=== PATIENT | male | born 2000 | race Caucasian/White ===

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

== ENCOUNTER 2025-01-17 21:04 | Emergency (ER) | payer MEDICAID ==
[~2025-01-17] VITALS: Ht 182.9 cm; Wt 102.7 kg
[2025-01-17 21:18] VITALS: BP 122/81; PULSE 105; RESP 16; TEMP 99; O2SAT 97
--- NOTE | 2025-01-17 21:27 | ED.PDOC ---
Back pain HPI HPI Comments PATIENT COMES WITH C.C OF RIGHT SECOND TOE PAIN / AFTER DROPPING A RAILROAD TIE ON IT. TOE HAS NO OPEN WOULD AND IS BRUISED WITH SWELLING. PATIENT DENIES NUMBNESS OR TINGLING SENSATION Chief Complaint: Lower Extremity Time Seen by MD: 21:19 Primary Care Provider: DR SLATER Reviewed Notes: Nurses Notes, Medications, Allergies Allergies: Coded Allergies: NO KNOWN ALLERGIES (Unverified , 02/24/11) Information Source: Patient Mode of Arrival: Ambulatory Past Medical History PAST MEDICAL HISTORY: Denies Surgical History: Denies all surgeries Family History Family History: Unobtainable Social History Smoker: Non-Smoker Alcohol: Denies ETOH Use Drugs: Denies Drug Use Lives In: Home Constitutional: denies: chills, diaphoresis, fatigue, fever, malaise, sweats, weakness, others EENTM: denies: blurred vision, double vision, ear bleeding, ear discharge, ear drainage, ear pain, ear ringing, eye pain, eye redness, hearing loss, mouth pain, mouth swelling, nasal discharge, nose bleeding, nose congestion, nose pain, photophobia, tearing, throat pain, throat swelling, voice changes, others Respiratory: denies: cough, hemoptysis, orthopnea, SOB at rest, shortness of breath, SOB with excertion, stridor, wheezing, others Cardiovascular: denies: chest pain, dizzy spells, diaphoresis, Dyspnea on exertion, edema, irregular heart beat, left arm pain, lightheadedness, palpitations, PND, syncope, others Gastrointestinal: denies: abdomen distended, abdominal pain, blood streaked bowels, constipated, diarrhea, dysphagia, difficulty swallowing, hematemesis, melena, nausea, poor appetite, poor fluid intake, rectal bleeding, rectal pain, vomiting, others Genitourinary: denies: burning, dysuria, flank pain, frequency, hematuria, incontinence, penile discharge, penile sore, pain, testicle pain, testicle swelling, urgency, others Neurological: denies: dizziness, fainting, headache, left sided numbness, left sided weakness, numbness, paresthesia, pre-existing deficit, right sided numbness, right sided weakness, seizure, speech problems, tingling, tremors, weakness, others Musculoskeletal: denies: back pain, gout, joint pain, joint swelling, muscle pain, muscle stiffness, neck pain, others Integumetry: reports: bruises (RIGHT 2ND DIGIT); denies: change in color, change in hair/nails, dryness, laceration, lesions, lumps, rash, wounds, others Allergic/Immunocompromised: denies: Difficulty Healing, Frequent Infections, Hives, Itching, others Hematologic/Lymphatic: denies: anemia, blood clots, easy bleeding, easy bruising, swollen glands, others Endocrine: denies: excessive hunger, excessive sweating, excessive thirst, excessive urination, flushing, intolerance to cold, intolerance to heat, unexplained weight gain, unexplained weight loss, others Psychiatric: denies: anxiety, bipolar disorder, depression, hopeless, panic disorder, schizophrenia, sleepless, suicidal, others Physical Exam General Appearance: No Apparent Distress, Normal HEENT: Pharynx Normal Neck: Full Range of Motion, Non-Tender Respiratory: Lungs Clear, No Respiratory Distress, Normal Breath Sounds Cardiovascular: No Murmur, Normal Peripheral Pulses, Regular Rate/Rhythm Breast Exam: Deferred Gastrointestinal: Non Tender, Soft Genitalia: Deferred Pelvic: Deferred Rectal: Deferred Extremities: No calf tenderness, Normal capillary refill, Normal inspection, Normal range of motion, Non-tender, No pedal edema Musculoskeletal : Apperance: Normal Neurologic: Alert, 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 Was a procedure done?: No Back Pain Differential Dx Differential Diagnosis: Fracture, Musculoskeletal Pain X-Ray, Labs, Meds, VS Vital Signs Date Time Temp Pulse Resp B/P (MAP) Pulse Ox O2 Delivery O2 Flow Rate FiO2 01/17/25 21:18 99.0 105 16 122/81 (95) 97 99.0 01/17/25 21:18 Room Air 01/17/25 21:18 99.0 105 16 122/81 (95) 97 99.0 X-Ray, Labs, Meds, VS Comment RIGHT FOOT X-RAY SHOWS NO ACUTE FRACTURES OSSEOUS LESIONS OR DISLOCATIONS. [id number] MOTRIN OR TYLENOL NEEDED FOR PAIN PER LABELED DOSING INSTRUCTIONS. TOE SAVITA-TAPED AND WRAPPED PATIENT TOLERATED WELL STRENGTH SENSORY MOTION INTACT. ADVISED TO FOLLOW UP WITH HIS PCP IN 1-2 DAYS NECESSARY DISCUSSED RICE. ER RETURN PRECAUTIONS GIVEN PATIENT INDICATES UNDERSTANDING AGREES WITH DISCHARGE PLAN OF CARE. Time of 1ST Reevaluation: 21:27 Reevaluation 1ST: Unchanged Time of 2ND Reevaluation: 22:16 Reevaluation 2ND: Improved Patient Education/Counseling: Diagnosis, Treatment, Prognosis, Need For Follow Up Family Education/Counseling: No Family Present Departure 1 Departure Time of Disposition: 22:17 Impression: Primary Impression: Contusion of toe with damage to nail Qualified Codes: S90.221A - Contusion of right lesser toe(s) with damage to nail, initial encounter Disposition: 01 HOME / SELF CARE / HOMELESS Condition: Stable Discharged With: Self Critical Care Note Critical Care Time?: No Stability Stability form required: GRISELDA Benjamin Jan 17, 2025 21:27
--- NOTE | 2025-01-17 21:57 | DVH ---
CLINICAL INDICATION: TOE PAIN TECHNIQUE: XY R FOOT 3 VIEW XRAY Comparison: None FINDINGS: No osseous or joint abnormality with no fracture or dislocation. Joint spaces are normal. IMPRESSION: No abnormality demonstrated.
== END 2025-01-17 22:30 | disposition home or self-care (01) ==
LOC: ER 21:07
DX: S90.221A Contusion of right lesser toe(s) with damage to nail, initial encounter (principal); X58.XXXA Exposure to other specified factors, initial encounter; Y93.89 Activity, other specified; Y92.89 Other specified places as the place of occurrence of the external cause; Y99.8 Other external cause status
CPT/HCPCS: 73630

== ENCOUNTER 2025-08-06 16:18 | Emergency (ER) | payer MEDICAID ==
[~2025-08-06] VITALS: Ht 185.4 cm; Wt 107.5 kg
[2025-08-06 16:20] VITALS: BP 145/98; PULSE 58; RESP 18; TEMP 97; O2SAT 98
== END 2025-08-06 18:46 | disposition left against medical advice (07) ==
LOC: ER 16:19
DX: K92.1 Melena (principal); K62.89 Other specified diseases of anus and rectum; Z53.21 Procedure and treatment not carried out due to patient leaving prior to being seen by health care provider

== ENCOUNTER 2025-09-26 12:38 | Emergency (ER) | payer MEDICAID ==
[~2025-09-26] VITALS: Ht 182.9 cm; Wt 108.3 kg
--- NOTE | 2025-09-26 13:42 | ED.PDOC ---
General HPI Comments 25 year old male presents to the ED with a chief compliant of bilateral testicle pain onset 2 days. He has been experiencing bilateral testicle pain for the past 2 days. Denies testicular masses Denies fevers chills night sweats nausea vomiting unintentional weight loss Denies changes in stool pattern Denies trauma to the testicle no recent fall Denies previous STD Denies urethral discharge, burning with urination, urinating more frequently, blood in the urine Chief Complaint: Testicle Pain Time Seen by MD: 13:30 Primary Care Provider: DR SLATER Reviewed notes: Nurses Notes, Medications, Allergies Allergies: Coded Allergies: NO KNOWN ALLERGIES (Unverified , 02/24/11) Information Source: Patient Mode of Arrival: Ambulatory Severity: Moderate Timing: Days Duration: Since onset Prehospital treatment: None Onset: Spontaneous Symptoms: Other History of: None Location male: R Scrotum, L Scrotum Modifying factors: None Past Medical History PAST MEDICAL HISTORY: Denies Surgical History: Denies all surgeries Family History Family History: Unobtainable Social History Smoker: Non-Smoker Alcohol: Denies ETOH Use Drugs: Denies Drug Use Lives In: Home All Other Systems: Reviewed and Negative (as per HPI) Physical Exam General Appearance: Normal HEENT: Normal ENT Inspection, Pharynx Normal, TMs Normal Neck: Full Range of Motion, Non-Tender, Normal, Normal Inspection Respiratory: Chest Non-Tender, Lungs Clear, No Accessory Muscle Use, No R espiratory Distress, Normal Breath Sounds Cardiovascular: No Edema, No JVD, No Murmur, No Gallop, Normal Peripheral Pulses, Regular Rate/Rhythm Breast Exam: Deferred Gastrointestinal: No Organomegaly, Non Tender, No Pulsatile Mass, Normal Bowel Sounds, Soft Genitalia: Deferred Pelvic: Deferred Rectal: Deferred Extremities: No calf tenderness, Normal capillary refill, Normal inspection, Normal range of motion, Non-tender, No pedal edema Musculoskeletal : Apperance: Normal Neurologic: Alert, 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 Was a procedure done?: No Differential Diagnosis Kidney stone (Female): Other X-Ray, Labs, Meds, VS Vital Signs Date Time Temp Pulse Resp B/P (MAP) Pulse Ox O2 Delivery O2 Flow Rate FiO2 09/26/25 15:24 98.0 75 16 125/75 (92) 98 98.0 09/26/25 12:40 97.9 75 16 127/91 96 97.9 Lab Test 09/26/25 13:42 Range/Units Urine Color Yellow Yellow Urine Clarity Clear Clear Urine pH 6.0 5.0-9.0 Urine Specific [place] 1.035 1.001-1.035 Urine Protein Trace H Negative Urine Ketones Negative Negative Urine Blood Negative Negative /uL Urine Nitrite Negative Negative Urine Bilirubin Negative Negative Urine Urobilinogen Normal Negative mg/dL Urine Leukocyte Esterase Negative Negative /uL Urine RBC 2 0 - 3 /hpf Urine Microscopic WBC 2 0-3 /HPF Urine Squamous Epithelial Cells None seen <5 /hpf Urine Bacteria None seen None Seen /hpf Urine Mucus Few None Seen Urine Glucose Normal Normal mg/dL X-Ray, Labs, Meds, VS Comment Patient arrives alert and oriented, ABC's intact, afebrile, vital signs stable, saturating well in room air labs were ordered. Urinalysis was ordered to rule out UTI or hematuria. Diagnostic imaging ordered by me and results interpreted by radiology : US Testicular: Presentation of symptoms are consistent with hydrocele. Education provided for patient to follow-up with urologist within 24 to 48 hours. Usually hydroceles resolve on their own, no need for surgical intervention. Elevate scrotum to help decrease swelling. Wear jockstrap for support. Take [id number] Tylenol or ibuprofen (take with food) as directed and as needed for pain management. Additional MDM Review of External, Non-ED records: External records reviewed. Discussion with independent historian (EMS, family) history obtained from the patient/parents (if applicable) at bedside Chronic conditions affecting care: None Social determinants of health affecting care: None Consideration of admission (observation or admission): I considered escalation of care to admission for this patient, however given the reassuring workup, the patient is safe for outpatient management. On reevaluation, patient had symptomatic improvement. Patient is stable for discharge at this time. External notes reviewed. Test results and diagnostic imaging interpreted. All diagnostic findings, discharge care, education and instructions provided Follow-up with PCP in 2 to 3 days Patient verbalized understanding and agreed to treatment plan Vital signs stable, afebrile, no acute distress noted Patient ambulatory with strong steady gait Advised to return precautions for any new or worsening symptoms, return to ER immediately for re-evaluation Patient is aware that the purpose of this visit was for an acute medical emergency requiring emergent stabilization. Chronic conditions, including malignancies have not been ruled out. Patient is instructed to follow up with PCP as directed and discharge instructions for continued care and workup. If unable to arrange follow-up, patient is to return to the emergency department for reassessment. Patient (parent or legal guardian if applicable) was given verbal and written discharge instructions and acknowledges understanding. Time of 1ST Reevaluation: 14:00 Reevaluation 1ST: Improved Patient Education/Counseling: Diagnosis, Treatment Family Education/Counseling: No Family Present SEPSIS Sepsis Screen Date sepsis recognized/suspect: Sep 26, 2025 Time Sepsis recognized/suspect: 1240 Recent Procedure: No On Antibiotic Therapy: No Respiratory Rate >20: No Heart Rate >90: No Temp<36 C (96.8 F) or >38.3 C: No SBP <90 or MAP <65 mmHG: No New Acute Mental Status Change: No Is the patient on CPAP, BIPAP,: No Physician Orders Testicular Ultrasound (09/26/25 13:37) Vital Signs Date Time Temp Pulse Resp B/P (MAP) Pulse Ox O2 Delivery O2 Flow Rate FiO2 09/26/25 15:24 98.0 75 16 125/75 (92) 98 98.0 09/26/25 12:40 97.9 75 16 127/91 96 97.9 Departure 1 Departure Time of Disposition: 14:39 Impression: Primary Impression: Hydrocele Qualified Codes: N43.3 - Hydrocele, unspecified Disposition: 01 HOME / SELF CARE / HOMELESS Condition: Stable Discharged With: Self Critical Care Note Critical Care Time?: No Stability Stability form required: No Heart Score Heart Score: Heart Score Response (Comments) Value History N/A 0 EKG N/A 0 Age N/A 0 Risk Factors N/A 0 Troponin N/A 0 Total 0 I personally scribed for HUMBERTO BAIG NP ([email or web address]) on 09/26/25 at 13:42. Electronically submitted by Yudi Lujan ([email or web address]). HUMBERTO BAIG NP Sep 26, 2025 13:42
--- NOTE | 2025-09-26 14:22 | DVH ---
ULTRASOUND OF SCROTUM AND CONTENTS. INDICATION: r/o TORSION COMPARISON: None TECHNIQUE: Multiple real-time grayscale sonographic and color and duplex Doppler images of the scrotum and its contents were obtained. FINDINGS: The right testicle measures 4.1 x 2.3 x 3.9 cm. The left testicle measures 4.4 x 2.8 x 3.0 cm. Both testicles demonstrate homogeneous echotexture without evidence of focal lesions. The right epididymal head measures 1.23 cm. The left epididymal head measures 1.42 cm. Subsequent color and duplex Doppler interrogation of the testes demonstrated symmetric normal vascular flow to both testicles. No focal areas of hyperemia were seen. Mild bilateral hydroceles seen. IMPRESSION: 1. No evidence of torsion, epididymitis, and/or orchitis. 2. Mild bilateral hydroceles.
[2025-09-26 15:04] LABS: Urine Protein, UAD TRACE (Negative)
[2025-09-26 15:24] VITALS: BP 125/75; PULSE 75; RESP 16; TEMP 98; O2SAT 98
== END 2025-09-26 15:30 | disposition home or self-care (01) ==
LOC: ER 12:38
DX: N43.3 Hydrocele, unspecified (principal)
CPT/HCPCS: 76870; 81001